=== PATIENT | male | born 1955 | race Caucasian/White ===

== ENCOUNTER 2016-11-30 20:15 | Observation (INO) | payer SELFPAY ==
[2016-11-30] MEDS ORDERED: HYDROmorphONE/DILAUDID 1 MG/ML SYR IM ONE (22:13)
[2016-11-30] MEDS ORDERED: LORazepam 2 MG/ML INJ IM ONE (23:09)
[2016-11-30] MEDS ORDERED: LORazepam 2 MG/ML INJ ONE (23:10)
--- NOTE | 2016-12-01 00:27 | EDPHY ---
H & P Time Seen by Provider: 11/30/16 21:07 HPI/ROS: CHIEF COMPLAINT: Severe back pain, left leg pain and weakness HISTORY OF PRESENT ILLNESS: 61-year-old male presents to the emergency department by private vehicle complaining of severe back pain after he fell off of a ladder. The patient states that he was inside the home changing a light bulb from a 10 foot ceiling and he was up on a ladder and apparently fell back onto his back. He is complaining of diffuse pain in his low back as well as severe pain in his left buttock down his left leg. He feels weakness in his left leg. He has some numbness in his left lower leg. Denies hitting his head or losing consciousness. Denies neck pain. Denies chest pain or difficulty breathing. Denies any presyncopal symptoms prior to his fall. Patient has a history of chronic back pain including 3 back surgeries most recently was in 2009 in [place]. He denies bowel or bladder incontinence. Denies symptoms in the right lower extremity. REVIEW OF SYSTEMS: Constitutional: No fever, no chills. Eyes: No double or blurry vision. ENT: No sore throat. Respiratory: No cough, no shortness of breath. Cardiac: No chest pain. Gastrointestinal: No abdominal pain, vomiting or diarrhea. Genitourinary: No dysuria. Musculoskeletal: As above Skin: No rashes. Neurological: No headache. Past Medical/Surgical History: Chronic back pain, degenerative disc disease, back surgery x3 in [place] Social History: Visiting from [place] Smoking Status: Current every day smoker Physical Exam: General Appearance: Alert, no distress. Eyes: Pupils equal and round. Extraocular motions are all intact. ENT: Mouth: Mucous membranes moist. No teeth. Respiratory: No wheezing, rhonchi, or rales, lungs are clear to auscultation. Cardiovascular: Regular rate and rhythm. Gastrointestinal: Abdomen is soft and nontender, no masses, no rebound or guarding, bowel sounds normal. Neurological: Alert and oriented x 3, cranial nerves II through XII grossly intact Skin: Warm and dry, no rashes. Musculoskeletal: Well-healed surgical scar noted to the lumbar spine. Diffusely tender to palpate along the lumbar spine. No palpable crepitus or other bony abnormality. Nontender to palpate along cervical or thoracic spine. Extremities: Patient is unable to actively lift his left leg. He has some weakness noted especially with dorsi and plantar flexion of the left leg. Unable to obtain reflexes in either the left or the right lower extremity. Normal sensation to light touch with normal 2 point discrimination. Strong dorsalis pedis pulse on the dorsal aspect of both the left and the right foot. Psychiatric: Patient is oriented X 3, there is no agitation. Constitutional: Initial Vital Signs Temperature (C) 36.4 C 11/30/16 20:25 Heart Rate 93 11/30/16 20:25 Respiratory Rate 22 H 11/30/16 20:25 Blood Pressure 136/75 H 11/30/16 20:25 O2 Sat (%) 99 11/30/16 20:25 O2 Delivery Mode Room Air Allergies/Adverse Reactions: morphine Allergy (Verified 11/30/16 20:24) NSAIDS (Non-Steroidal Anti-Inflamma Allergy (Verified 11/30/16 20:24) Home Medications: Medication Instructions Recorded NK [No Known Home Meds] 11/30/16 Medical Decision Making - Diagnostics Imaging: Discussed imaging studies w/ scallop raker Radiologist, I viewed and interpreted images myself ED Course/Re-evaluation: 61-year-old male presents to the emergency department with low back pain and severe pain in his left leg with weakness. X-rays of the lumbar spine reveal hardware in place with compression deformity noted L2 of age indeterminate. Because the patient has continued ongoing back pain requiring pain medication with leg weakness after traumatic injury, MRI of the lumbar spine has been ordered and is pending. The patient has been given IM Dilaudid and IM Ativan. MRI of the lumbar spine reveals diffuse degenerative changes with likely older subacute L2 compression deformity. Comparison images would be helpful per the radiologist. At some point he may need contrast MRI as well. The patient will be admitted for pain control to Dr. Georgina Cormier, hospitalist. Differential Diagnosis: Back pain including but not limited to muscular pain, herniated disc, spine fracture, intra-abdominal causes and urinary tract infection. - Data Points Medications Given: Discontinued Medications Hydromorphone HCl (Dilaudid) 1 mg IM EDNOW ONE Stop: 11/30/16 22:14 Last Admin: 11/30/16 22:18 Dose: 1 mg Hydromorphone HCl (Dilaudid) 1 mg IVP EDNOW ONE Stop: 12/01/16 00:46 Last Admin: 12/01/16 01:02 Dose: 1 mg Lorazepam (Ativan Injection) 1 mg IM EDNOW ONE Stop: 11/30/16 23:10 Last Admin: 11/30/16 23:15 Dose: 1 mg Departure - Departure Disposition: [facility] Inpatient Acute Clinical Impression: Back pain Qualifiers: Back pain location: low back pain Chronicity: acute Back pain laterality: midline Sciatica presence: with sciatica Sciatica laterality: sciatica of left side Qualified Code(s): M54.42 - Lumbago with sciatica, left side Condition: Good Referrals: NONE *PRIMARY CARE P,. [Primary Care Provider] - As per Instructions
[2016-12-01] MEDS ORDERED: HYDROmorphONE/DILAUDID 1 MG/ML SYR ONE (00:40)
[2016-12-01] MEDS ORDERED: HYDROmorphONE/DILAUDID 1 MG/ML SYR IVP ONE ×2 (00:45→15:56)
[2016-12-01 01:27] LABS: % IMMATURE GRANULYOCYTES 0.5 % (0.0-1.1); ABSOLUTE IMMATURE GRANULOCYTES 0.05 10^3/uL (0.00-0.10); ADD DIFF? NO; ADD MORPH? NO; ADD SCAN? NO; ATYPICAL LYMPHOCYTE FLAG 10 (0-99); FRAGMENT RBC FLAG 0 (0-99); HEMATOCRIT 42.3 % (40.0-51.0); HEMOGLOBIN 14.3 g/dL (13.7-17.5); LEFT SHIFT FLG 0 (0-99); LIPEMIA HEMOLYSIS FLAG 90 (0-99); MEAN CELL HEMOGLOBIN 32.2 pg (27.9-34.1); MEAN CELL HEMOGLOBIN CONCENTR. 33.8 g/dL (32.4-36.7); MEAN CELL VOLUME 95.3 fL (81.5-99.8); MEAN PLATELET VOLUME 10.3 fL (8.7-11.7); PLATELET CLUMPS FLAG 0 (0-99); PLATELET COUNT 232 10^3/uL (150-400); RED BLOOD CELL COUNT 4.44 10^6/uL (4.40-6.38); RED CELL DISTRIBUTION WIDTH 13.8 % (11.5-15.2)
[2016-12-01 01:38] LABS: ANION GAP 11 mEq/L (8-16); CALCIUM 9.4 mg/dL (8.5-10.4); CARBON DIOXIDE 19 mEq/l (22-31); CHLORIDE 106 mEq/L (97-110); CREATININE 0.5 mg/dL (0.7-1.3); GLOMERULAR FILTRATION RATE > 60; GLUCOSE 172 mg/dL (70-100); POTASSIUM 4.4 mEq/L (3.5-5.2); SODIUM 136 mEq/L (134-144)
[2016-12-01] MEDS ORDERED: DIAZEPAM 5 MG TAB PO PRN ×2 (02:40→03:27)
[2016-12-01] MEDS ORDERED: HYDROmorphONE/DILAUDID 2 MG TAB PO PRN (02:41)
[2016-12-01] MEDS ORDERED: ONDANSETRON 4 MG/2 ML VIAL IVP PRN (03:17)
[2016-12-01] MEDS ORDERED: ONDANSETRON DISINTEGRATING 4 MG TAB PO PRN (03:17)
[2016-12-01] MEDS ORDERED: NS 1,000 ML IV SCH (03:30)
[2016-12-01] MEDS ORDERED: HYDROmorphONE/DILAUDID 1 MG/ML SYR IVP PRN ×3 (03:32→17:33)
--- NOTE | 2016-12-01 04:46 | GHP ---
[f rep st] HISTORY AND PHYSICAL DATE OF ADMISSION: 12/01/2016 CHIEF COMPLAINT: Acute on chronic low back pain in the setting of acute compression fracture with radiculopathy. HISTORY OF PRESENT ILLNESS: The patient is a 61-year-old male visiting from [place] with history of chronic low back pain and multiple prior surgeries, who presents to the emergency department with acute back pain with radiculopathy after falling off a ladder. He states he was trying to install a ceiling fan and the latter buckled, and he fell onto his back. He had immediate pain. He then developed numbness in his left lower extremity, going down the lateral aspect of his leg into his 4th and 5th toe. He has also described a shooting electrical pain down the leg. He has been unable to walk since this accident occurred. He denies bowel or bladder incontinence. In the emergency department, an initial x-ray showed an age indeterminate compression fracture at L2 with hyperdensity a bit concerning for a sclerotic metastatic lesion. He then underwent lumbar spine MRI, which confirms an L2 compression fracture suspected to be pathologic and acute. He is admitted to the hospital for pain control and further management. PAST MEDICAL HISTORY: Chronic low back pain. Multiple back surgeries. MEDICATIONS: Please see [employer] for complete updated outpatient medication list. ALLERGIES: Morphine and anti-inflammatories, which cause a rash. FAMILY HISTORY: Reviewed and noncontributory. SOCIAL HISTORY: The patient is visiting from [place]. 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 He smokes a pack per day. He denies alcohol or drug use. REVIEW OF SYSTEMS: A 10-point review of systems was performed and is negative except as per HPI. OBJECTIVE: VITAL SIGNS: Temperature is 36.5, blood pressure 136/82, heart rate 67, respiratory rate 20, he is 97% on room air. GENERAL: The patient is awake, alert, and oriented, in no acute distress. HEENT: Head is atraumatic, normocephalic. Pupils equal, round, and reactive to light. Extraocular muscles intact. Oropharynx is clear. Mucous membranes are moist. NECK: Supple. There is no JVD. HEART: Regular rate and rhythm. LUNGS: Clear to auscultation bilaterally. ABDOMEN: Soft, nondistended, nontender with normoactive bowel sounds. EXTREMITIES: Without cyanosis or clubbing. There is trace bilateral lower extremity edema. NEUROLOGIC: He has 5/5 muscle strength in the right lower extremity, 2/5 proximal muscle strength in the left lower extremity. Sensation is absent on his lateral left foot and 4th and 5th toes. His medial foot and great toe have an abnormal sensation. Deep tendon reflexes are absent at the patella. IMAGING STUDIES: 1. Lumbar spine x-ray showed age indeterminate compression fracture of L2 with a rounded hyperdensity in the body of L2 concerning for a sclerotic metastatic lesion. 2. Lumbar spine MRI without contrast shows a T1 and T2 hypointense lesion in the body of L2, possibly client service representative of an osteoblastic metastatic lesion. L2 compression fracture likely pathologic and acute. Canal compromise, mild at L1, L2 and L3 secondary to circumferential disk bulges, as well as foraminal stenosis, which is mild in the right at L4-L5 and mild bilaterally at L5-S1. ASSESSMENT AND PLAN: The patient is a 61-year-old male with history of chronic low back pain, who presents to the emergency department with acute pain after a fall. 1. Acute on chronic low back pain with acute L2 compression fracture and radiculopathy. S/P fall from a ladder. He has an abnormal neurologic exam, though the distribution of his symptoms does not entirely correlate with the L2 level of his compression fracture. He does, however, have some mild canal compromise at L5 and S1. Will proceed with a repeat MRI with and without contrast of the lumbar spine for better evaluation of this L2 lesion as there is some concern for a metastatic lesion. He certainly warrants a Neurosurgery consultation and I will contact them when the sun rises. In the mean time, we will proceed with further imaging and pain control. He will also need acute physical therapy/occupational therapy evaluations, which are ordered. I will keep him n.p.o. in the event he needs to undergo intervention for his compression fracture. 2. Tobacco abuse. The patient requests a NicoDerm patch was ordered. 3. Metabolic acidosis. This is a non-anion gap. I suspect this will improve with some gentle intravenous fluids, which will provide overnight and recheck his labs in the morning. 4. Code status. Patient is full code. 5. Deep venous thrombosis prophylaxis. We will place sequential compression devices for now as it is unclear if he will undergo any intervention for his acute compression fracture. If no intervention is planned, and he requires a prolonged hospitalization, would start Lovenox. 6. Disposition. Patient is admitted to observation status. Should he require ongoing hospitalization, we can change him to inpatient as indicated. /[id number]/MODL MTDD
[2016-12-01] MEDS: NICOTINE 21 MG/24 HR PATCH TD SCH ×2 (05:09→08:47)
[2016-12-01] MEDS: GABAPENTIN 300 MG CAP PO SCH ×3 (05:10→21:30)
[2016-12-01] MEDS: oxyCODONE IR 5 MG TAB PO PRN ×4 (06:23→22:57)
[2016-12-01 10:18] LABS: ANION GAP 8 mEq/L (8-16); CALCIUM 9.2 mg/dL (8.5-10.4); CARBON DIOXIDE 24 mEq/l (22-31); CHLORIDE 106 mEq/L (97-110); CREATININE 0.5 mg/dL (0.7-1.3); GLOMERULAR FILTRATION RATE > 60; GLUCOSE 153 mg/dL (70-100); POTASSIUM 4.4 mEq/L (3.5-5.2); SODIUM 138 mEq/L (134-144)
[2016-12-01] MEDS ORDERED: GADOBUTROL 10 ML VIAL IVP ONE (12:25)
--- NOTE | 2016-12-01 12:34 | NEUSURGPN ---
Assessment/Plan: 61 yo male with back and left lower extremity pain. Left leg pain is located at the posterior aspect with lateral numbness/tingling. Pain increased with movement. History of a lumbar fusion and laminectomy 7 years ago. No loss of bowel/bladder control. No right leg pain. 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 Moderate bilateral foraminal stenosis at L5/S1, mild at right L4/5 Plan: - pain contorl - obtain CT L-spine and MRI L-spine with contrast to better evaluate the lesion at L2 The patient was seen by myself and Dr. Gill. Full note dictated. Subjective: Having back and left lower extremity pain. Objective: Awake. Alert. PERRL. EOMI Following commands Pain limited exam with poor effort Diffuse LLE weakness at 4+/5 due to pain Neurosurgery Physical Exam - Vitals, I&O, Labs I and O 11/30/16 12/01/16 12/02/16 05:59 05:59 05:59 Intake Total 1250 Output Total 150 300 Balance 1100 -300 Weight 85.593 kg Intake: Oral (ml) 1250 Output: Urine (ml) 150 300 Urinal 150 300 Vital Signs Temp Pulse Resp BP Pulse Ox 36.7 C 61 20 136/78 H 93 12/01/16 07:45 12/01/16 07:45 12/01/16 07:45 12/01/16 07:45 12/01/16 07:45 Laboratory Results 12/01/16 09:50 ICD10 Worksheet Patient Problems: Problems Problem Status Onset Back pain Acute
--- NOTE | 2016-12-01 12:34 | HOSPPROG ---
Hospitalist Progress Note Assessment/Plan: Patient is a 61 y/o male who is here visiting from [place] who presented with back pain after falling off a ladder. He has a hx of chronic back pain w multiple back surgeries. I reviewed his imaging w the radiologist who thought the L2 compression fx is not acute/there is concern for sclerotic metastasis/ MRI w contrast and CT scan has been ordered. Reviewed his care with Dr Gill. If these two studies show metastasis will get further imaging (CT of chest, abdomen and pelvis). In the meantime will check a PSA. Also spoke with Dr Lee/ she describes the lesion as being a possible type of kyphoplasty that is solid bone, possible cadaver bone. Left a message for Dr Jung to see and get input about patient's MRI/ also, getting records from [place]. *acute back pain on chronic back pain/concern for a sclerotic metastasis difficult to get his hx/ frequently asking for larger doses of IV Dilaudid will get records from [place] will ask oncology to weigh in *Plan: will give a dose of IV Dilaudid now/has been quite sedate earlier/ will ask Dr Gill and Dr Jung to weigh in >45 minutes coordinating his care with the above/ 50% spent counseling patient. Spoke with Dr Jung and will get a SPEP and bone scan/ he will update Dr Anthony to see in the morning Subjective: Chris is c/o severe back pain/ requesting i double his pain iv doses / Objective: Vital Signs Temp Pulse Resp BP Pulse Ox 36.7 C 61 20 136/78 H 93 12/01/16 07:45 12/01/16 07:45 12/01/16 07:45 12/01/16 07:45 12/01/16 07:45 Laboratory Results 12/01/16 09:50 11/30/16 12/01/16 12/02/16 05:59 05:59 05:59 Intake Total 1250 Output Total 150 300 Balance 1100 -300 - Physical Exam Constitutional: appears nourished, uncomfortable, No not in pain Eyes: PERRL Ears, Nose, Mouth, Throat: hearing normal Respiratory: no respiratory distress Skin: warm, normal color Neurologic: AAOx3 Psychiatric: anxious ICD10 Worksheet Patient Problems: Problems Problem Status Onset Back pain Acute
[2016-12-01] MEDS ORDERED: DIAZEPAM 10 MG TAB PO PRN (12:39)
--- NOTE | 2016-12-01 15:07 | GCON ---
[f rep st] CONSULTATION DATE OF CONSULTATION: 12/01/2016 HISTORY OF PRESENT ILLNESS: The patient is a 61-year-old male who presented to the emergency department due to complaints of back and lower extremity pain. He has a history of a prior lumbar fusion and laminectomy with his most recent surgery approximately 7 years ago. He states that he was trying to install a ceiling fan and the ladder buckled, and he fell backwards. He developed immediate pain. He has back pain that is increased with activity and radiates into the posterior aspect of his left leg. He has numbness on the lateral aspect of his left leg. No right lower extremity symptoms. No loss of bowel or bladder control. PAST MEDICAL HISTORY: Current chronic back pain. PAST SURGICAL HISTORY: Lumbar laminectomy and fusion. ALLERGIES: Morphine and NSAIDs. CURRENT HOME MEDICATIONS: Please refer to the MAR. REVIEW OF SYSTEMS: Patient denies loss of bowel or bladder control. Admits to back and left lower extremity pain. No right lower extremity pain. Negative except for what is mentioned in the HPI. SOCIAL HISTORY: Patient denies current use of tobacco. FAMILY HISTORY: No pertinent neurosurgical family history. PHYSICAL EXAMINATION: Patient was seen and examined, appears to be in no apparent distress. Mood and affect are appropriate. Alert and oriented. VITAL SIGNS: Blood pressure 136/78, heart rate 61, respirations 20, breathing 93% on room air, temperature 36.7. Extraocular movements are intact. Pupils are equal and reactive. Facial expression is symmetrical. Tongue is midline with protrusion. Speech is fluent without dysarthria. Muscle strength is well preserved in his right lower extremity at a 5/5. His left lower extremity was pain limited with poor effort and had diffuse weakness at 4+ to 5- out of 5 with hip flexion, knee flexion and extension. Dorsiflexion and plantar flexion is 5/5. Sensation is intact to light touch. 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 Foraminal stenosis, mild on the right, L4-5, and moderate bilaterally at L5-S1. ASSESSMENT AND PLAN: In summary, the patient is a 61-year-old male with back and left lower extremity symptoms with history of a prior lumbar fusion from L4 to S1. His MRI of the lumbar spine demonstrates a hypointense lesion in the body of L2 that is concerning for osteoblastic metastasis. We recommend proceeding with further imaging at this time with an MRI of the lumbar spine with contrast as well as a CT lumbar spine without contrast to further evaluate. Recommendations will follow. Patient was seen by myself and Dr. Jaye Gill. /[id number]/MODL Seen and examined. Agree with above. F/u studies reveal no acute compression fractures or evidence of metastasis, no explanation for radicular symptoms or weakness. Some paraspinal edema likely secondary to fall. At this point patient has pain out of proportion to imaging, complaints inconsistent with imaging and multiple Erin's signs. No neurosurgical intervention indicated. Recommend PT/OT/dc home and fu in [place] with his regular surgeon. This was communicated to IM. Neurosurgery will sign off MTDD
[2016-12-01] MEDS: DIAZEPAM 5 MG TAB PO PRN ×2 (19:22→22:57)
[2016-12-01] MEDS ORDERED: METHOCARBAMOL 750 MG TAB PO SCH (22:00)
[2016-12-01] MEDS: ACETAMINOPHEN 325 MG TAB PO PRN (22:56)
[2016-12-01 23:08] VITALS: BP 122/76; PULSE 94; RESP 16; TEMP 97.9; O2SAT 96
[2016-12-02] MEDS: DIAZEPAM 5 MG TAB PO PRN (03:44)
[2016-12-02] MEDS: oxyCODONE IR 5 MG TAB PO PRN ×2 (03:45→08:01)
[2016-12-02] MEDS: ACETAMINOPHEN 325 MG TAB PO PRN (03:45)
--- NOTE | 2016-12-02 12:25 | GDS ---
[f rep st] DISCHARGE SUMMARY DISCHARGE DIAGNOSES: Acute back pain on chronic back pain. BRIEF HISTORY: Mr. Phillips is a 61-year-old male, who is visiting from the [facility]. He presented to the emergency room after he fell off a ladder. He has a history of chronic back pain with multiple surgeries. He had an MRI performed that showed an L2 compression fracture that is not acute. There was concern of a sclerotic metastasis. I reviewed his care with Dr. Gill and Dr. Lauer Lee. The lumbar spine CT showed an area of the bony defect with soft tissue density 5.6 x 4.5 cm posterior to the L5 spinal canal. While this looks like fluid collection on the CT scan, a recent MRI does not confirm it but showed edema within the soft tissue. He also has an area of bone matrix that is well confined and centralized with an L2 compression deformity. He has no new fractures. It looks like it is most consistent with an OptiMesh procedure although it cannot be 100% excluded that he does not have any type of osteoblastic lesion. I have requested for his records from the [facility] to be sent to me. During the patient's care, he was frequently asking for narcotics. I am concerned he may have been drug seeking. He says that he has only taken Tylenol in the past for pain. His PDMP from the [facility] [place] noted that he does get narcotics filled but not in that significant high doses. He was not forthcoming about his narcotic use. Today, prior to any further evaluation and discussion with him, he left prior to me seeing him and left against medical advice. No discharge instructions were given. Recommending if he returns to the emergency room, that he get copies of his imaging so he can get further followup in [place] or [place] depending on where he is located. /[id number]/MODL MTDD
[2016-12-04 15:55] LABS: FREE PSA 0.2 ng/mL; PSA RATIO F/T See Comments ratio; TOTAL PSA 1.3 ng/mL (<=4.5)
== END 2016-12-02 08:20 | disposition left against medical advice (07) ==
LOC: F3N 12-01 01:50 → UNDODISOB 12-02 08:20
PROVIDERS: ADMIT Hospitalist; ATTEND Internal Medicine
DX: S39.92XA Unspecified injury of lower back, initial encounter (principal); M51.86 Other intervertebral disc disorders, lumbar region; E87.2 Acidosis; W11.XXXA Fall on and from ladder, initial encounter; Y92.009 Unspecified place in unspecified non-institutional (private) residence as the place of occurrence of the external cause; Y93.E9 Activity, other interior property and clothing maintenance; F17.210 Nicotine dependence, cigarettes, uncomplicated; Z98.1 Arthrodesis status; Z88.6 Allergy status to analgesic agent
CPT/HCPCS: 84154-90; 86334-90; 96374; A9585; G0378; J1170; J2060